=== PATIENT | female | born 1975 | race Caucasian/White ===

== ENCOUNTER 2017-12-23 14:45 | Emergency (ER) | payer BC, OTHER ==
[2017-12-23 15:50] LABS: ADD MAN DIFF? NO
[2017-12-23 15:52] LABS: WHITE BLOOD COUNT 9.2 10^3/ul (4.8-10.8)
[2017-12-23 15:52] LABS: BASOPHIL # 0.1 10^3/ul (0.0-0.1); BASOPHILS % 0.5 % (0.0-2.0); EOSINOPHILS # 0.1 10^3/ul (0.0-0.5); HEMATOCRIT 38.7 % (37.0-47.0); HEMOGLOBIN 13.5 g/dl (12.0-16.0); LYMPHOCYTES # 2.5 10^3/ul (0.8-2.9); LYMPHOCYTES % 27.1 % (15.0-51.0); MEAN CORPUSCULAR HEMOGLOBIN 31.4 pg (29.0-33.0); MEAN CORPUSCULAR HGB CONC 34.9 g/dl (32.0-37.0); MEAN PLATELET VOLUME 11.2 fl (7.4-10.4); MONOCYTE # 0.6 10^3/ul (0.3-0.9); MONOCYTES % 6.4 % (0.0-11.0); NEUTROPHILS % 64.7 % (39.0-77.0); PLATELET COUNT 289 10^3/UL (140-415); RED CELL DISTRIBUTION WIDTH 12.7 % (11.5-14.5)
[2017-12-23 16:00] LABS: ALANINE AMINOTRANSFERASE 21 IU/L (13-69); ALBUMIN 4.3 g/dl (3.3-4.9); ALBUMIN/GLOBULIN RATIO 1.19; ALKALINE PHOSPHATASE 49 IU/L (42-121); ANION GAP 14 (8-16); ASPARTATE AMINO TRANSFERASE 22 IU/L (15-46); BILIRUBIN,INDIRECT 0.3 mg/dl (0-1.1); BILIRUBIN,TOTAL 0.3 mg/dl (0.2-1.3); BLOOD UREA NITROGEN 6 mg/dl (7-20); CALCIUM 9.6 mg/dl (8.4-10.2); CARBON DIOXIDE 24 mmol/L (21-31); CHLORIDE 106 mmol/L (97-110); CREATININE 0.74 mg/dl (0.44-1.00); GLUCOSE 97 mg/dl (70-220); LIPASE 26 U/L (23-300); POTASSIUM 3.6 mmol/L (3.5-5.1); SODIUM 140 mmol/L (135-144); TOTAL PROTEIN 7.9 g/dl (6.1-8.1)
[2017-12-23 16:11] LABS: TROPONIN-I < 0.012 ng/ml (0.000-0.120)
[2017-12-23] MEDS: ASPIRIN 325 MG TAB PO (16:26)
[2017-12-23] MEDS: SOD CHLORIDE 0.9% 1,000 ML IV (17:49)
[2017-12-23] MEDS: SOD CHLORIDE 0.9% 100 ML ×2 (18:24→18:31)
[2017-12-23] MEDS: IOHEXOL 350MG/ML 50 ML BTL (18:24)
[2017-12-23] MEDS: IOHEXOL 0 ML (18:32)
[2017-12-23 19:14] LABS: TROPONIN-I < 0.012 ng/ml (0.000-0.120)
[2017-12-23 20:06] LABS: ADD UMIC YES; UR ASCORBIC ACID NEGATIVE (NEGATIVE); UR BACTERIA FEW /HPF (NONE SEEN); UR BILIRUBIN (Dip) NEGATIVE (NEGATIVE); UR BLOOD (Dip) 1+ mg/dL (NEGATIVE); UR CLARITY SLIGHTLY CLOUDY (CLEAR); UR COLOR YELLOW (YELLOW); UR GLUCOSE (Dip) NEGATIVE (NEGATIVE); UR KETONES (Dip) NEGATIVE (NEGATIVE); UR LEUKOCYTE ESTERASE (Dip) TRACE Leu/ul (NEGATIVE); UR NITRITE (Dip) NEGATIVE (NEGATIVE); UR RBC 0 /HPF (0-5); UR SPECIFIC GRAVITY (Dip) 1.009 (1.003-1.030); UR SQUAMOUS EPITHELIAL CELL MODERATE /HPF (FEW); UR TOTAL PROTEIN (Dip) NEGATIVE (NEGATIVE); UR UROBILINOGEN (Dip) NEGATIVE (NEGATIVE); UR WBC 4 /HPF (0-5)
[2017-12-23] MEDS: LIDOCAINE/MYLANTA 40 ML BTL PO (20:22)
[2017-12-23] MEDS: KETOROLAC 15 MG INJ IV (20:23)
[2017-12-23] MEDS: LORAZEPAM 2 MG INJ IV (20:26)
== END 2017-12-23 21:01 | disposition home or self-care (01) ==
LOC: E/R 21:01
DX: R07.9 Chest pain, unspecified (principal); B20 Human immunodeficiency virus [HIV] disease
CPT/HCPCS: 36415; 71045; 71275; 80053; 81001; 81025; 83690; 84484; 85025; 93005; 96374; 96375; 99285-25